=== PATIENT | female | born 1980 | race Caucasian/White ===

== ENCOUNTER 2017-05-24 12:36 | Emergency (ER) | payer BC ==
[~2017-05-24] VITALS: Ht 170.2 cm; Wt 94.0 kg
[~2017-05-24 12:36] MED LIST: ATV/1 PO; CITA40TA12 PO; IMIP25TA3 PO; RANI150T85 PO
[2017-05-24 12:41] VITALS: TEMP 36.9; Ht 170.2 cm; Wt 94.0 kg
[2017-05-24 12:55] VITALS: O2SAT 100
[2017-05-24] MEDS ORDERED: LIDOCAINE HCL 2% VISC SOLN 20 ML UDC MT STA (12:58)
[2017-05-24] MEDS ORDERED: ALUMINUM/MAGNESIUM SUSP 30 ML UDC PO STA (12:58)
--- NOTE | 2017-05-24 13:02 | EMERGENCY ROOM VISIT NOTE ---
History Report prepared by Kelton: Felton Browne Under the Supervision of: Dr. Bernard Webb M.D. First contact with patient: 12:50 Chief Complaint: CHEST PAIN Stated Complaint: CHEST PAIN, FEEL LIKE GOING TO PASS OUT Nursing Triage Summary: left sided chest pain that started this am and has gotten worse and is in her shoulder now pt also c/o feeling light headed History of Present Illness The patient is a 37 year old female who presents to the Emergency Room with complaints of left-sided burning chest pain that began this morning when she woke up. She rates her pain a 9/10 in severity. She has a past medical history of anxiety, IBS, and GERD, but has not experienced GERD in about 12 years. When she awoke this morning, she experienced this mild pain to her left chest. She thought that it was GERD and did not think much more about it. Her pain then worsened throughout the morning, beginning to radiate into her left shoulder. Her left arm feels achy and heavy with some intermittent finger tingling. She is currently experiencing some lightheadedness. Her chest pain is exacerbated with deep inhalation. She denies any history of diabetes, cardiac disease, or blood clots. She denies any recent travel, control use, alcohol use, or current pregnancies. She denies any fevers, chills, nausea, vomiting, abdominal pain, calf pain, or calf swelling. She denies any recent surgeries or known allergies to medications. She notes she is having some chronic breast pain that is being follow up with [facility]. Source of History: patient Onset: this morning Position: chest (left) Symptom Intensity: 9/10 Quality: burning Timing: worsening Modifying Factors (Worsening): breathing Associated Symptoms: No fevers, No nausea, No vomiting, No abdominal pain Note: She denies any calf pain or swelling. She is experiencing lightheadedness. Review of Systems See HPI for pertinent positives & negatives. A total of 10 systems reviewed and were otherwise negative. Past Medical & Surgical Medical Problems: (1) IBS (irritable bowel syndrome) Family History Patient reports no known family medical history. Social History Smoking Status: Current Every Day Smoker Alcohol Use: occasionally Marital Status: Housing Status: lives with family Occupation Status: employed Current/Historical Medications Scheduled Citalopram Hydrobromide (Celexa), 40 MG PO DAILY Omeprazole (Prilosec), 40 MG PO DAILY Allergies Coded Allergies: No Known Allergies (Unverified , 05/24/17) Physical Exam Vital Signs Date Time Temp Pulse Resp B/P (MAP) Pulse Ox O2 Delivery O2 Flow Rate FiO2 05/24/17 15:49 76 18 124/76 95 05/24/17 15:31 79 16 124/76 96 Room Air 05/24/17 13:55 71 16 126/80 95 05/24/17 13:16 77 16 134/80 95 Room Air 05/24/17 12:59 87 05/24/17 12:55 100 Room Air 05/24/17 12:41 36.9 95 16 141/92 94 Physical Exam General: Non-ill appearing young female in no acute distress. HEENT: Normal cephalic atraumatic. Pupils are equal round and reactive to light. Extraocular movements are intact. Oropharynx is pink with moist mucous membranes. No swelling of the mouth lips or tongue. Neck: Supple with a midline trachea. No meningeal signs or stiffness, no JVD or bruits. No Stridor. Chest: Clear to auscultation bilaterally. No wheezes or rhonchi. No increased work of breathing. Mildly reproducibly tender to the left chest. Heart: regular rate and rhythm. Abdomen: Soft nontender, nondistended without rebound guarding or rigidity. Extremities: No cyanosis clubbing or edema. No calf tenderness or assymetry Spine/Back. Non tender to palpation. No CVA tenderness Skin: Good turgor without rashes. Neurologic exam: Cranial nerves two through 12 are intact. Motor and sensation are intact and symmetrical throughout. Medical Decision & Procedures ER Provider Diagnostic Interpretation: Radiology results as stated below per my review and radiologist interpretation: CHEST ONE VIEW PORTABLE CLINICAL HISTORY: Chest pain. Syncope. COMPARISON STUDY: No previous studies for comparison. FINDINGS: Lung volumes are normal. No pneumothorax or pleural effusion is noted. Lungs are clear. Cardiac size is normal. Mediastinal contours are normal. There is no evidence for pulmonary edema. IMPRESSION: No acute cardiopulmonary findings. Electronically signed by: Anthony Amaya M.D. 05/24/2017 1:30 PM Dictated Date/Time: 05/24/2017 1:29 PM Laboratory Results 05/24/17 12:55 Red Blood Count 4.82, Mean Corpuscular Volume 91.3, Mean Corpuscular Hemoglobin 31.1, Mean Corpuscular Hemoglobin Concent 34.1, Mean Platelet Volume 9.7, Neutrophils (%) (Auto) 60.7, Lymphocytes (%) (Auto) 23.8, Monocytes (%) (Auto) 8.0, Eosinophils (%) (Auto) 7.1, Basophils (%) (Auto) 0.3, Neutrophils # (Auto) 5.21, Lymphocytes # (Auto) 2.05, Monocytes # (Auto) 0.69, Eosinophils # (Auto) 0.61, Basophils # (Auto) 0.03 05/24/17 12:55 Test 05/24/17 12:55 05/24/17 12:58 05/24/17 13:10 White Blood Count 8.60 K/uL (4.8-10.8) Red Blood Count 4.82 M/uL (4.2-5.4) Hemoglobin 15.0 g/dL (12.0-16.0) Hematocrit 44.0 % (37-47) Mean Corpuscular Volume 91.3 fL (80-100) Mean Corpuscular Hemoglobin 31.1 pg (25-34) Mean Corpuscular Hemoglobin Concent 34.1 g/dl (32-36) Platelet Count 258 K/uL (130-400) Mean Platelet Volume 9.7 fL (7.4-10.4) Neutrophils (%) (Auto) 60.7 % Lymphocytes (%) (Auto) 23.8 % Monocytes (%) (Auto) 8.0 % Eosinophils (%) (Auto) 7.1 % Basophils (%) (Auto) 0.3 % Neutrophils # (Auto) 5.21 K/uL (1.4-6.5) Lymphocytes # (Auto) 2.05 K/uL (1.2-3.4) Monocytes # (Auto) 0.69 K/uL (0.11-0.59) Eosinophils # (Auto) 0.61 K/uL (0-0.5) Basophils # (Auto) 0.03 K/uL (0-0.2) RDW Standard Deviation 43.9 fL (36.4-46.3) RDW Coefficient of Variation 13.1 % (11.5-14.5) Immature Granulocyte % (Auto) 0.1 % Immature Granulocyte # (Auto) 0.01 K/uL (0.00-0.02) Prothrombin Time 10.0 SECONDS (9.0-12.0) Prothromb Time International Ratio 1.0 (0.9-1.1) Activated Partial Thromboplast Time 28.0 SECONDS (21.0-31.0) Partial Thromboplastin Ratio 1.1 D-Dimer 200 ug/L FEU (0-500) Anion Gap 6.0 mmol/L (3-11) Est Creatinine Clear Calc Drug Dose 90.6 ml/min Estimated GFR () 82.5 Estimated GFR (Non- 71.2 BUN/Creatinine Ratio 6.7 (10-20) Calcium Level 8.6 mg/dl (8.5-10.1) Total Bilirubin 0.4 mg/dl (0.2-1) Direct Bilirubin < 0.1 mg/dl (0-0.2) Aspartate Amino Transf (AST/SGOT) 9 U/L (15-37) Alanine Aminotransferase (ALT/SGPT) 21 U/L (12-78) Alkaline Phosphatase 69 U/L (45-117) Total Creatine Kinase 87 U/L (26-192) Creatine Kinase MB < 0.5 ng/ml (0.5-3.6) Total Protein 7.3 gm/dl (6.4-8.2) Albumin 3.8 gm/dl (3.4-5.0) Lipase 126 U/L (73-393) Human Chorionic Gonadotropin, Qual NEG (NEG) Creatine Kinase MB Ratio (0-3.0) Bedside Troponin I < 0.030 ng/ml (0-0.045) Laboratory studies as stated above per my review. Medications Administered Medications (Trade) Dose Ordered Sig/Sung Route Start Time Stop Time Status Last Admin Dose Admin Al Hydroxide/Mg Hydroxide (Maalox Susp) 30 ml NOW STAT PO 05/24/17 12:58 05/24/17 13:00 DC 05/24/17 13:54 30 ML Lidocaine HCl (Viscous Lidocaine 2% Soln) 10 ml NOW STAT MT 05/24/17 12:58 05/24/17 13:00 DC 05/24/17 13:54 10 ML Ketorolac Tromethamine (Toradol Inj) 30 mg NOW STAT IV 05/24/17 13:42 05/24/17 13:43 DC 05/24/17 13:54 30 MG ECG Per My Interpretation Indication: chest pain Rate (beats per minute): 74 Rhythm: normal sinus, other (with sinus arrhythmia) Findings: no acute ischemic change, other (Normal intervals) Comparison ECG Date: no prior available ED Course 1250: Past medical records reviewed. The patient was evaluated in room B3B, and a complete history and physical examination were performed. 1258: Ordered Lidocaine HCl 10 mg MT, Maalox Susp 30 ml PO 1342: Ordered Toradol Inj 30 mg IV 1540: Upon reevaluation, the patient is resting. I discussed the results and treatment plan with her. She verbalized agreement of the treatment plan. The patient was discharged home. Medical Decision Differentials include, but are not limited to; acute coronary syndrome, arrhythmia, GERD, pneumothorax, pulmonary embolism, and electrolyte or metabolic abnormality. This patient comes in as described above. She is complaining of chest pain. It is left-sided it hurts worse with breathing and is pleuritic. She had no trauma. she looks well on exam. The nurse came and got me with the initial EKG as a computer had read as acute MN. Looked at the EKG , there are no ischemic changes and there is a lot of artifact and it is not a good EKG. I went and saw the patient immediately and she is well-appearing. we repeated EKG and it was normal without ischemia changes. She has a history of GI symptoms. she was given a GI cocktail and additionally IV Toradol while she was here and the pain resolved. She has no elevation of her cardiac biomarkers. She has no acute electrolyte or metabolic abnormalities. D-dimer is within normal limits and in a low pretest probability setting, makes PE highly unlikely. Chest x-ray was unremarkable and shows no evidence to suggest congestive heart failure, pneumonia, or pneumothorax. She is feeling better and would like to go home. test is negative. I think is most likely GI or musculoskeletal. I will discharge her home. she will return if: worsening of symptoms, fever or chills, any new problems or concerns. follow-up with her doctor this week for recheck. Medication Reconcilliation Current Medication List: was personally reviewed by me Blood Pressure Screening Patient's blood pressure: Elevated blood pressure Blood pressure disposition: Elevated BP felt to be situational Impression Primary Impression: Precordial chest pain Additional Impression: GERD (gastroesophageal reflux disease) Scribe Attestation The scribe's documentation has been prepared under my direction and personally reviewed by me in its entirety. I confirm that the note above accurately reflects all work, treatment, procedures, and medical decision making performed by me. Departure Information Dispostion Home / Self-Care Referrals Vik Barnhart M.D. (PCP) Forms Call Back Authorization, HOME CARE DOCUMENTATION FORM, IMPORTANT VISIT INFORMATION Patient Instructions My [facility] Additional Instructions Rest. Drink plenty of fluids. May use Maalox and [id number] dosages if needed May also use ibuprofen 400 mg every 6 hours, take with food Return to the ER if: Increasing pain, worsening symptoms, fever or chills, shortness of breath, any new problems or concerns Follow-up with your doctor in 1-2 days for recheck Problem Qualifiers
[2017-05-24 13:13] LABS: BASO % 0.3 %; BASO ABS # 0.03 K/uL (0-0.2); EOS % 7.1 %; EOS ABS # 0.61 K/uL (0-0.5); IG# 0.01 K/uL (0.00-0.02); LYMPH % 23.8 %; LYMPH ABS # 2.05 K/uL (1.2-3.4); MEAN CELL VOLUME 91.3 fL (80-100); MEAN CORPUSCULAR HEMOGLOBIN 31.1 pg (25-34); MEAN CORPUSCULAR HGB CONC 34.1 g/dl (32-36); MEAN PLATELET VOLUME 9.7 fL (7.4-10.4); MONO ABS # 0.69 K/uL (0.11-0.59); NEUT % 60.7 %; NEUT ABS # 5.21 K/uL (1.4-6.5); PLATELET COUNT 258 K/uL (130-400); RED CELL DISTRIBUTION WIDTH CV 13.1 % (11.5-14.5); RED CELL DISTRIBUTION WIDTH SD 43.9 fL (36.4-46.3)
[2017-05-24] MEDS ORDERED: OMEP40CA41 PO (13:29)
[2017-05-24] MEDS ORDERED: CITA40TA12 PO (13:29)
--- NOTE | 2017-05-24 13:31 | DIAGNOSTIC IMAGING REPORT ---
CHEST ONE VIEW PORTABLE CLINICAL HISTORY: Chest pain. Syncope. COMPARISON STUDY: No previous studies for comparison. FINDINGS: Lung volumes are normal. No pneumothorax or pleural effusion is noted. Lungs are clear. Cardiac size is normal. Mediastinal contours are normal. There is no evidence for pulmonary edema. IMPRESSION: No acute cardiopulmonary findings. Electronically signed by: Anthony Amaya M.D. 05/24/2017 1:30 PM Dictated Date/Time: 05/24/2017 1:29 PM
[2017-05-24 13:33] LABS: ALBUMIN 3.8 gm/dl (3.4-5.0); ALT/SGPT 21 U/L (12-78); BLOOD UREA NITROGEN 7 mg/dl (7-18); CALCIUM 8.6 mg/dl (8.5-10.1); CARBON DIOXIDE 25 mmol/L (21-32); CREATININE 1.02 mg/dl (0.60-1.20); GLUCOSE 98 mg/dl (70-99); LIPASE 126 U/L (73-393); POTASSIUM 3.7 mmol/L (3.5-5.1); SODIUM 135 mmol/L (136-145)
[2017-05-24 13:39] LABS: ALKALINE PHOSPHATASE 69 U/L (45-117); AST/SGOT 9 U/L (15-37); CKMB < 0.5 ng/ml (0.5-3.6); TOTAL PROTEIN 7.3 gm/dl (6.4-8.2)
[2017-05-24] MEDS ORDERED: KETOROLAC TROMETHAMINE 30 MG/ML VIAL IV STA (13:42)
[2017-05-24 15:49] VITALS: BP 124/76; PULSE 76; O2SAT 95
== END 2017-05-24 15:51 | disposition home or self-care (01) ==
LOC: C.EDB 12:38
DX: R07.2 Precordial pain (principal); K21.9 Gastro-esophageal reflux disease without esophagitis; F41.9 Anxiety disorder, unspecified; K58.9 Irritable bowel syndrome, unspecified; F17.210 Nicotine dependence, cigarettes, uncomplicated; Z79.899 Other long term (current) drug therapy